=== PATIENT | male | born 1995 | race Hispanic/Latino ===

== ENCOUNTER 2017-04-25 00:30 | Emergency (ER) | payer SELFPAY ==
[~2017-04-25] VITALS: Ht 172.7 cm; Wt 80.0 kg
[~2017-04-25 00:30] MED LIST: ALEVE220 MG OR; LORTAB 5 OR; NO; NO MEDS; ZOFRAN4 MG/TAB PO
[2017-04-25 01:18] LABS: HEMATOCRIT 41.7 % (39.0-50.0); HEMOGLOBIN 14.1 g/dl (14.0-18.0); IMMATURE GRANULOCYTES 0.6 % (0.0-1.0); MEAN CELL VOLUME 89.5 fL CALC (80.0-100.0); MEAN CORPUSCULAR HGB 30.3 pG CALC (26.0-32.0); MEAN CORPUSCULAR HGB CONC 33.8 g/L CALC (32.0-36.0); NEUT# 4.45 thou/uL (1.82-7.42); RED BLOOD COUNT 4.66 mill/uL (4.70-6.10); RED CELL DISTRI WIDTH 12.9 % (11.5-15.5)
[2017-04-25 01:20] LABS: ALBUMIN 4.8 g/dL (3.2-5.0); ALKALINE PHOSPHATASE 96 u/l (38-126); ANION GAP 17 (6-22 (CALC)); BILIRUBIN, TOTAL 0.5 mg/dL (0.0-1.4); BUN 15 mg/dL (9-20); BUN/CREATININE RATIO 16 (12-20 (CALC)); CALCIUM 9.9 mg/dL (8.4-10.2); CARBON DIOXIDE 26 mmol/l (22-30); CHLORIDE 105 mmol/l (95-108); CREATININE 0.9 mg/dL (0.7-1.3); GFR > 60 ML/MIN (>=60 (CALC)); GFR FOR AFR.AMER. > 60 ML/MIN (>=60 (CALC)); GLUCOSE 102 mg/dL (75-110); POTASSIUM 4.1 mmol/l (3.5-5.1); SGOT/AST 26 u/l (17-59); SGPT/ALT 52 u/l (21-72); SODIUM 144 mmol/l (137-146); TOTAL PROTEIN 7.9 g/dL (6.3-8.2)
[2017-04-25 01:25] LABS: ACT PARTIAL THROMBO TIME 29.5 SECONDS (20.0-32.5); PROTHROMBIN TIME 10.9 SECONDS (9.0-12.5)
[2017-04-25 01:32] LABS: MYOGLOBIN 19 ng/mL (0 - 121)
[2017-04-25 02:17] LABS: COCAINE NEGATIVE (NEGATIVE); METHADONE NEGATIVE (NEGATIVE); TETRAHYDROCANNABIONOL NEGATIVE (NEGATIVE)
[2017-04-25 02:18] LABS: BARBITURATES NEGATIVE (NEGATIVE); OXCYCODONE NEGATIVE (NEGATIVE); TRICYLIC ANTIDEPRESSANTS NEGATIVE (NEGATIVE)
[2017-04-25] MEDS ORDERED: ULTRAM50 M1 PO (03:31)
[2017-04-25 03:40] VITALS: BP 112/59
== END 2017-04-25 03:49 | disposition home or self-care (01) | DRG 313 ==
LOC: ED 00:30
PROVIDERS: Emergency Medicine
DX: R07.89 Other chest pain (principal)
CPT/HCPCS: Q9967

== ENCOUNTER 2022-05-02 18:20 | Emergency (ER) | payer BC ==
[~2022-05-02] VITALS: Ht 172.7 cm; Wt 86.1 kg
[~2022-05-02 18:20] MED LIST changes: +ULTRAM50 M1 PO
[2022-05-02 18:25] VITALS: BP 154/101
[2022-05-02 18:44] VITALS: BP 129/81
[2022-05-02 18:55] LABS: HEMOGLOBIN 14.3 g/dl (14.0-18.0); IMMATURE GRANULOCYTES 0.2 % (0.0-5.0); MEAN CELL VOLUME 86.3 fL CALC (80.0-100.0); MEAN CORPUSCULAR HGB 28.7 pG CALC (26.0-32.0); MEAN CORPUSCULAR HGB CONC 33.3 g/dL CAL (32.0-36.0); NEUT# 5.95 thou/uL (1.82-7.42); RED BLOOD COUNT 4.98 mill/uL (4.70-6.10); RED CELL DISTRI WIDTH 13.2 % (11.5-15.5)
[2022-05-02 19:01] VITALS: BP 135/70
[2022-05-02 19:04] LABS: ALBUMIN 5.1 g/dL (3.2-5.0); ALKALINE PHOSPHATASE 106 u/l (38-126); ANION GAP 18 (6-22 (CALC)); BILIRUBIN, TOTAL 0.6 mg/dL (0.0-1.4); BUN 16 mg/dL (9-20); BUN/CREATININE RATIO 16 (12-20 (CALC)); CARBON DIOXIDE 22 mmol/l (22-30); CHLORIDE 103 mmol/l (95-108); GFR FOR AFR.AMER. > 60 ML/MIN (>=60 (CALC)); GFR OTHER RACES > 60 ML/MIN (>=60 (CALC)); POTASSIUM 3.8 mmol/l (3.5-5.1); SGOT/AST 37 u/l (17-59); SODIUM 138 mmol/l (137-146); TOTAL PROTEIN 8.3 g/dL (6.3-8.2)
[2022-05-02 19:31] VITALS: BP 143/76
[2022-05-02 19:57] LABS: URINE BILIRUBIN - DIPSTICK NEGATIVE (NEGATIVE); URINE BLOOD DIPSTICK NEGATIVE (NEGATIVE); URINE COLOR YELLOW; URINE GLUCOSE - DIPSTICK NEGATIVE (NEGATIVE); URINE KETONE NEGATIVE (NEGATIVE); URINE LEUK ESTERASE NEGATIVE (NEGATIVE); URINE PROTEIN - DIPSTICK NEGATIVE (NEG-TRACE); URINE SPECIFIC GRAVITY >=1.030; URINE UROBILINOGEN - DIPSTICK 0.2 E.U./dL (0.2)
[2022-05-02 19:59] LABS: URINE NITRITE - DIPSTICK NEGATIVE (Negative)
[2022-05-02 20:31] VITALS: BP 110/60
[2022-05-02] MEDS ORDERED: MIRALAX17 GM PO (20:35)
[2022-05-02 20:45] VITALS: BP 110/60
[2022-05-02] MEDS ORDERED: ATIVAN0.5 MG PO (20:49)
== END 2022-05-02 20:50 | disposition home or self-care (01) | DRG 880 ==
LOC: ED 18:20
PROVIDERS: Emergency Medicine
DX: F41.9 Anxiety disorder, unspecified (principal); K59.00 Constipation, unspecified; M54.42 Lumbago with sciatica, left side
CPT/HCPCS: J2060; Q9967